=== PATIENT | male | born 1990 | race Caucasian/White ===

== ENCOUNTER 2020-09-14 17:11 | Emergency (ER) | payer OTHER, SELFPAY ==
[2020-09-14 17:20] VITALS: BP 150/86; PULSE 113; RESP 20; TEMP 36.8; O2SAT 98; BMI 24.7
--- NOTE | 2020-09-14 17:36 | HMH.EDUTC ---
[facility] [place]: Lac[place] of left leg Qualifiers: Encounter type: initial encounter Qualified Code(s): S81.812A - Laceration without foreign body, left lower leg, initial encounter Disposition: Home, Self-Care Condition on Discharge: Good Instructions: How to Care for a Laceration Prior to Repair, DI for Laceration Repair -- Simple Additional Instructions: Keep the wound clean and dry. Keep a dressing on it if you are going to be getting it dirty. Watch the for signs of infection, such as redness, swelling, drainage, fever. etc. Give tylenol or ibuprofen for pain. Follow up with your regular doctor. Return in 7 to 10 days to have the sutures removed. GO TO THE ER FOR ANY WORSENING SYMPTOMS OR CONCERNS. Prescriptions: cephALEXin [Keflex 500mg Cap] 500 mg PO Q6H 10 Days #40 cap Transmission Status: Received by [facility] [employer] Referrals: Shon Pratt MD [Primary Care Provider] - Time of Disposition: 18:12 Medical Decision Making - Medical Records Medical records reviewed: No: I reviewed the patient's medical records. - Julio C Inquiry Pt receiving controlled substance: No Vital Signs: 09/14/20 17:20 09/14/20 18:14 Temperature 98.2 F 98.2 F Temperature Source Oral Pulse Rate 113 H Pulse Rate [Right Brachial] 113 H Respiratory Rate 20 20 Blood Pressure 150/86 H Blood Pressure [Right Arm] 150/86 H Blood Pressure Mean [Right Arm] 107 Blood Pressure Source [Right Arm] Automatic Cuff Blood Pressure Position [Right Arm] Sitting 02 Sat by Pulse Oximetry 98 Oxygen Delivery Method Room Air [facility] [place] - General Stated complaint: AO 1112@1630 Lac R leg Time Seen by Provider: 09/14/20 17:40 Mode of Arrival: Ambulatory Source of Information: Patient Limitations: No Limitations Description of Symptoms (Recalled from Triage Doc. by RN): PATIENT C/O LACERATION TO TOP OF RIGHT THIGH. HE STATES HE GOT KICKED BY A HORSE AT APPROX 1630 AND THINKS THE KEYS IN HIS POCKET CAUSED THE LACERATION HEENT Symptoms (Recalled from RN notes): No Resp Symptoms (Recalled from RN notes): No Skin Symptoms (Recalled from RN notes): Yes MS Symptoms (Recalled from RN notes): No Functional Status (Recalled from RN notes): WNL - History of Present Illness Provider Complaint: He states that he has a laceration on the top of his right thigh from where a horse kicked him and he had keys in his pockets. He thinks that his tetanus immunization is up to date, but he is not completely sure. Regardless, he refuses a tetanus shot today. - Related Data Previous Rx's Medication Instructions Recorded cephALEXin [Keflex 500mg Cap] 500 mg PO Q6H 10 Days #40 cap 09/14/20 Allergies Allergy/AdvReac Type Severity Reaction Status Date / Time No Known Allergies Allergy Unverified 10/21/17 14:50 - Worker's Comp Is this a Worker's Comp case?: No [facility] History - Hepatitis A Screen Drug use history?: No High risk sexual behaviors?: No History of sexually transmitted infection?: No Currently employed?: No Childcare worker?: No Do you have indoor plumbing?: Yes Do you have electricity?: Yes Attestation statement:: This patient has been screened for Hepatitis A risk factors. I have reviewed the patient's past medical history: Yes - Social History Alcohol Intake: never Occupational Status: other ROS Obtained: Yes All systems reviewed & no additional complaints - Constitutional Constitutional: Reports system reviewed and no additional complaints, except as docu - Eyes Eyes: Reports system reviewed and no additional complaints, except as docu - ENT Ears, Nose, Mouth, and Throat: Reports system reviewed and no additional complaints, except as docu - Cardiovascular Cardiovascular: Reports system reviewed and no additional complaints, except as docu - Respiratory Respiratory: Yes system reviewed and no additional complaints, except as docu - Gastrointestinal Ga
[2020-09-14 18:14] VITALS: BP 150/86; PULSE 113; RESP 20; TEMP 36.8; O2SAT 98
== END 2020-09-14 18:15 | disposition home or self-care (01) ==
PROVIDERS: Emergency Provider Nurse Practitioner Family; PCP Family Medicine
DX: S81.812A Laceration without foreign body, left lower leg, initial encounter (principal); W55.12XA Struck by horse, initial encounter; Y92.73 Farm field as the place of occurrence of the external cause
CPT/HCPCS: 12001; 99201

== ENCOUNTER → 2020-11-02 16:18 | Outpatient (CLI) | payer OTHER, SELFPAY ==
[2020-11-02 17:02] LABS: Basophils # 0.1 K/mm3 (0-0.2); Basophils % 1.3 % (0.1-2.0); Eosinophils # 0.2 K/mm3 (0.0-0.4); Eosinophils % 5.7 % (0.1-12.0); Hematocrit 49.8 % (42.0-52.0); Hemoglobin 16.2 g/dL (14.1-18.0); Lymphocytes # 0.7 K/mm3 (0.7-4.5); Lymphocytes % 17.6 % (10-50); Mean Corpuscular HGB Conc 32.5 g/dL (31.8-35.4); Mean Corpuscular Hemoglobin 31.1 pg (27.0-31.2); Mean Corpuscular Volume 95.7 fl (80-94); Monocytes # 0.4 K/mm3 (0.1-1.0); Monocytes % 8.8 % (1.7-9.3); Neutrophils # 2.7 K/mm3 (1.8-7.8); Neutrophils % 66.6 % (37.0-80.0); Platelet Count 251 K/mm3 (142-424); Red Cell Distribution Width 12.7 % (11.5-17.5)
[2020-11-02 18:04] LABS: Coronavirus 19 IgG Antibody Negative (Negative); Coronavirus 19 IgM Antibody Negative (Negative)
== END ==
PROVIDERS: PCP Physician Assistant; Visit Provider Physician Assistant
DX: Z20.828 Contact with and (suspected) exposure to other viral communicable diseases (principal); U07.1 COVID-19
CPT/HCPCS: 36415; 85025; 86328; U0003